=== PATIENT | male | born 1970 | race Caucasian/White ===

== ENCOUNTER 2017-12-14 17:21 | Emergency (ER) | payer MEDICARE, MEDICAID ==
--- NOTE | 2017-12-14 17:47 | UC ---
Dizzy HPI HPI Summary: 46-year-old male presents with onset of dizziness, confusion, sleepiness, and palpitations today. States that 2 days ago he turned on his furnace for the first time and noticed a bluish cloudy in his apartment at that time. States he aired out the house but continue to use the furnace since there was no further cloudiness. States he spoke to his landlord who says that the furnace has not been had any maintenance for the past 10 years. His friend who gave him a ride to the clinic states that he spoke to his at least 3 times on the phone today the patient states he has no recollection of these conversations. Denies fever, chills, headache, facial droop, visual disturbances, slurred speech, weakness, numbness, or tingling of the extremities, chest pain, shortness of breath, abdominal pain, nausea, or vomiting. - History Of Current Complaint Chief Complaint: UCChemicalExposure Stated Complaint: DIZZY,CONFUSION Time Seen by Provider: 12/14/17 17:41 Hx Obtained From: Patient Onset/Duration: Gradual Onset Pain Intensity: 0 Character: Dizzy Associated Signs And Symptoms: Positive: Palpitations. Negative: Nausea, Vomiting, Chest Pain, SOB, Visual Changes - Allergies/Home Medications Allergies/Adverse Reactions: Allergies Allergy/AdvReac Type Severity Reaction Status Date / Time bee venom protein (honey bee) Allergy Swelling Verified 12/14/17 17:31 codeine Allergy Nausea And Verified 12/14/17 17:31 Vomiting doxycycline Allergy Rash Verified 12/14/17 17:31 insect bites Allergy Severe Swelling Uncoded 12/14/17 17:31 Home Medications: Home Medications Valsartan 40 mg PO DAILY 12/14/17 [History Confirmed 12/14/17] PMH/Surg Hx/FS Hx/Imm Hx Cardiovascular History: Hypertension Other Cardiovascular History: LVH Psychological History: Anxiety - Surgical History Surgical History: None Surgery Procedure, Year, and Place: RT FOOT 05/03/12,[facility] [place], [place]. LEFT FOOT/ANKLE 1995, [facility]. 1978, LEFT FOOT, [facility]. 1971, LEFT FOOT, [facility] - Family History Known Family History: Positive: Cardiac Disease, Hypertension - Social History Occupation: Disabled Lives: Alone Alcohol Use: None Substance Use Type: None Smoking Status (MU): Former Smoker Type: Cigarettes Have You Smoked in the Last Year: No When Did the Patient Quit Smoking/Using Tobacco: 1996 Review of Systems Constitutional: Negative Skin: Negative Eyes: Negative Respiratory: Negative Cardiovascular: Palpitations Gastrointestinal: Negative Neurological: Negative Is Patient Immunocompromised?: No All Other Systems Reviewed And Are Negative: Yes Physical Exam Triage Information Reviewed: Yes Appearance: No Pain Distress, Well-Nourished Vital Signs: Initial Vital Signs Temp 99.7 F 12/14/17 17:26 Pulse 106 12/14/17 17:26 Resp 20 12/14/17 17:26 BP 182/104 12/14/17 17:26 Pulse Ox 100 12/14/17 17:26 Vital Signs Reviewed: Yes Neck: Positive: Supple, Nontender, No Lymphadenopathy Respiratory: Positive: Chest non-tender, Lungs clear, Normal breath sounds, No respiratory distress Cardiovascular: Positive: RRR, No Murmur, Pulses Normal, Brisk Capillary Refill , Tachycardia Abdomen Description: Positive: Nontender, No Organomegaly, Soft. Negative: Distended, Guarding Neurological: Positive: Alert, Other: - Awake, alert, and oriented x 4. Cranial nerves II-XII grosly intact. COHN equal and strong. Good muscle tone. Sensation intact. Skin Exam: Normal Diagnostics - EKG Cardiac Rate: NL - rate 97 Cardiac Rhythm: Sinus: Normal Ectopy: None ST Segment: Non-Specific - possible ST depression in V4-V6 EKG Comparison: Other - No previous study for comparison Dizzy Course/Dx - Course Course Of Treatment: 46 year old male with onset of dizziness, confusion, palpitations, and sleepiness. He reports a possible exposure to carbon monoxide from his furnace. He was hypertensive and tachycardic at presentation. Neuro intact. EKG SR with LVH, possible left atrial enlargment, and non-specific ST changes. Recommend further evaluation in ED. Patient transferred via [facility]. - Differential Dx/Diagnosis Differential Diagnosis/HQI/PQRI: Anxiety, Coronary Artery Disease, Dysrhythmia, Hypovolemia, Transient Ischemic Attack, Other - Carbon monoxide Provider Diagnoses: Dizziness - Physician Notifications Discussed Patient Care With: Naina Liu Time Discussed With Above Provider: 18:05 Instructed by Provider To: MD Will See In ED Discharge - Sign-Out/Discharge Documenting (check all that apply): Patient Departure All imaging exams completed and their final reports reviewed: No Studies - Discharge Plan Condition: Stable Disposition: TRANS HIGHER LVL OF CARE FAC Patient Education Materials: Dizziness (ED) Referrals: Jayleen Beasley MD [Primary Care Provider] - Additional Instructions: I am recommending that you go to the emergency via ambulance for further evaluation. - Billing Disposition and Condition Condition: STABLE Disposition: Trans Higher Lvl of Care Fac
[2017-12-14 18:06] VITALS: BP 164/93
== END 2017-12-14 18:01 | disposition short-term general hospital (02) ==
LOC: UCEAST 17:21
DX: R42 Dizziness and giddiness (principal); R00.2 Palpitations; R41.0 Disorientation, unspecified; I10 Essential (primary) hypertension; Z88.1 Allergy status to other antibiotic agents; Z88.5 Allergy status to narcotic agent; Z91.030 Bee allergy status; Z91.038 Other insect allergy status; Z79.899 Other long term (current) drug therapy; Z87.891 Personal history of nicotine dependence
CPT/HCPCS: 93005; 99204; G0463

== ENCOUNTER → 2017-12-14 18:30 | Emergency (ER) | payer MEDICARE, MEDICAID ==
--- NOTE | 2017-12-14 19:01 | ED ---
Dizziness - HPI Summary HPI Summary: Patient is a 46 y/o M BIBA w/ c/o possible carbon monoxide poisoning a couple days ago. He states that home furnace was turned on a couple of days ago and the house was filled with fumes similar to those from a car exhaust. Patient states that after house was cleared out, there was still the scent of fumes in the basement. He since reports experiencing dizziness, confusion, mild memory loss, and diaphoresis. CRANDALL is denied. No one else is sick in his home. Patient reports there was a carbon monoxide detector in the house but that it was not calibrated. CO was 6 on EMS monitor. PMHx of anxiety, on xanax, decreased dose recently on his own. On triage, pain is denied, nothing is noted to aggravate/ alleviate Sx. Home medications and allergies are reviewed. - History Of Current Complaint Chief Complaint: EDDizziness Stated Complaint: DIZZY/CONFUSION Time Seen by Provider: 12/14/17 18:47 Hx Obtained From: Patient Onset/Duration: Still Present Timing: Days - a couple of days ago Severity Currently: None Character: Dizzy Aggravating Factor(s): Nothing Alleviating Factor(s): Nothing Associated Signs And Symptoms: Positive: Diaphoresis, Other: - confusion, mild memory loss, diaphoresis, no CRANDALL - Allergies/Home Medications Allergies/Adverse Reactions: Allergies Allergy/AdvReac Type Severity Reaction Status Date / Time bee venom protein (honey bee) Allergy Swelling Verified 12/14/17 17:31 codeine Allergy Nausea And Verified 12/14/17 17:31 Vomiting doxycycline Allergy Rash Verified 12/14/17 17:31 insect bites Allergy Severe Swelling Uncoded 12/14/17 17:31 PMH/Surg Hx/FS Hx/Imm Hx Endocrine/Hematology History: Denies: Hx Diabetes Cardiovascular History: Reports: Hx Hypertension - HIGH BP DUE TO PAIN Denies: Hx Pacemaker/ICD, Other Cardiovascular Problems/Disorders Respiratory History: Denies: Hx Asthma, Other Respiratory Problems/Disorders GI History: Reports: Hx Gastroesophageal Reflux Disease Denies: Other GI Disorders History: Denies: Hx Dialysis, Hx Renal Disease Musculoskeletal History: Reports: Hx Arthritis - IN LEFT FOOT AND ANKLE, Hx Back Problems - herniated disks, Hx Congenital Bone Abnormalities - left clubfoot, Hx Tendonitis - LEFT SHOULDER, Other Musculoskeletal History - EPIDURAL INJ 10 DAYS AGO IN LEFT SHOULDER Sensory History: Denies: Hx Contacts or Glasses, Hx Hearing Aid Opthamlomology History: Denies: Hx Contacts or Glasses Neurological History: Reports: Hx Migraine - IMPROVED SINCE STOPPING PAIN MED Denies: Other Neuro Impairments/Disorders Psychiatric History: Reports: Hx Anxiety Denies: Hx Panic Disorder - Surgical History Surgery Procedure, Year, and Place: RT FOOT 05/03/12,[facility]. LEFT FOOT/ANKLE 1995, [facility]. 1978, LEFT FOOT, [facility]. 1971, LEFT FOOT, [facility] Hx Anesthesia Reactions: No Infectious Disease History: No Infectious Disease History: Denies: Traveled Outside the [place] in Last 30 Days - Family History Known Family History: Positive: Cardiac Disease, Hypertension - Social History Alcohol Use: None Substance Use Type: Reports: None Smoking Status (MU): Former Smoker Type: Cigarettes Have You Smoked in the Last Year: No Review of Systems Positive: Skin Diaphoresis, Other - possible carbon monoxide poisoning Neurological: Other - confusion, dizziness, mild memory loss Negative: Headache All Other Systems Reviewed And Are Negative: Yes Physical Exam - Summary Physical Exam Summary: Appearance: Well-appearing, Well-nourished, lying in bed comfortably Skin: Warm, dry, no obvious rash Eyes: sclera anicteric, no conjunctival pallor ENT: mucous membranes moist, pharynx appears normal Neck: Supple, nontender Respiratory: Clear to auscultation, no signs of respiratory distress Cardiovascular: Normal S1, S2. No murmurs. Normal distal pulses in tibial and radial bilaterally. Abdomen: Soft, nontender, normal active bowel sounds present Musculoskeletal: Normal, Strength/ROM Intact Neurological: A&Ox3, awake and alert, mentation is normal, speech is fluent and appropriate Psychiatric: affect is normal, does not appear anxious or depressed Triage Information Reviewed: Yes Vital Signs On Initial Exam: Initial Vitals Temp Pulse Resp BP Pulse Ox 99.1 F 79 16 178/105 100 12/14/17 18:41 12/14/17 18:41 12/14/17 18:41 12/14/17 18:41 12/14/17 18:41 Vital Signs Reviewed: Yes Diagnostics - Vital Signs Vital Signs Temp Pulse Resp BP Pulse Ox 12/14/17 18:41 99.1 F 79 16 178/105 100 - Laboratory Result Diagrams: 12/14/17 19:18 12/14/17 19:18 Lab Statement: Any lab studies that have been ordered have been reviewed, and results considered in the medical decision making process. Dizzy Course/Dx - Diagnoses Provider Diagnoses: Weakness Discharge - Sign-Out/Discharge Documenting (check all that apply): Patient Departure - DC - Discharge Plan Condition: Good Disposition: HOME Patient Education Materials: Weakness (ED) Referrals: Jayleen Beasley MD [Primary Care Provider] - 2 Days Additional Instructions: Your carbon monoxide blood test was negative, so your symptoms are not coming from that. The rest of your blood work was unremarkable. There does not appear to be any serious problem warranting further testing or hospitalization at present, but if your symptoms persist you should contact your PCP for further evaluation. We are also available here if your condition is worsening. - Billing Disposition and Condition Condition: GOOD Disposition: Home - Attestation Statements Document Initiated by Frediibe: Yes Documenting Scribe: Onur Mcnulty Provider For Whom Eleni is Documenting (Include Credential): Dr. Juan Pablo Chahal MD Scribe Attestation: I, Onur Mcnulty , scribed for Dr. Juan Pablo Chahal MD on at 1428. Scribe Documentation Reviewed: Yes Provider Attestation: The documentation as recorded by the scribe, Onur Mcnulty accurately reflects the service I personally performed and the decisions made by me, Dr. Juan Pablo Chahal MD
[2017-12-14 19:32] LABS: ABS Basophils 0 10^3/ul (0-0.2); ABS Eosinophils 0 10^3/ul (0-0.6); ABS Lymphocytes 1.2 10^3/ul (1.0-4.8); ABS Monocytes 0.3 10^3/ul (0-0.8); ABS Nucleated RBC 0 10^3/ul; Eosinophil % 0.1 % (0-6); Hematocrit 47 % (42-52); Hemoglobin 15.7 g/dl (14.0-18.0); Lymphocyte % 16.4 % (25-47); Mean Corpuscular HGB Conc 34 g/dl (31-36); Mean Corpuscular Hemoglobin 31 pg (27-31); Mean Corpuscular Volume 94 fL (80-94); Mean Platelet Volume 7.3 um3 (7.4-10.4); Nucleated Red Blood Cells % 0.1; Platelet Count 326 10^3/ul (150-450); Red Blood Count 5.01 10^6/ul (4.00-5.40); Red Cell Distribution Width 14 % (10.5-15); White Blood Count 7.6 10^3/ul (3.5-10.8)
[2017-12-14 19:50] LABS: EGFR Non-African American 119.4 (>60)
[2017-12-14 20:22] VITALS: BP 166/95
== END | disposition home or self-care (01) ==
LOC: ED 18:30
DX: R53.1 Weakness (principal); R42 Dizziness and giddiness; R41.0 Disorientation, unspecified; R51 Headache; R00.2 Palpitations; I10 Essential (primary) hypertension; Z88.1 Allergy status to other antibiotic agents; Z88.5 Allergy status to narcotic agent; Z91.030 Bee allergy status; Z91.038 Other insect allergy status; Z79.899 Other long term (current) drug therapy; Z87.891 Personal history of nicotine dependence
CPT/HCPCS: 36415; 80053; 82375; 83605; 85025; 99282